=== PATIENT | male | born 1950 | race Caucasian/White ===

== ENCOUNTER 2018-04-08 05:23 | Inpatient (IN) | payer OTHER ==
[2018-04-08] MEDS ORDERED: NS 1,000 ML IV ONE ×3 (05:32→06:16)
--- NOTE | 2018-04-08 05:36 | EDPHY ---
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 States started feeling short of breath around 2 o 'clock in the morning. With increasing coughing spell with productive sputum. The coughing spell persisted throughout the night. It is now 530 in the morning he presents emergency room short of breath, tachycardic and febrile. Upon arrival to the emergency room he is greeted ER room 11 with his in as well as himself. He has noted be tachycardic in the 160s to 170s. Additionally noted to be febrile 38.3. Crackles throughout all lung ordonez except the right lower base. He has a productive cough clear yellow sputum. Additionally complains of right-sided chest discomfort. 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 Coronary disease with stents. Hyperlipidemia. Past Surgical History: Lobectomy right lower lobe carcinoid tumor. Previous pneumothorax. 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 Family History: Noncontributory ROS REVIEW OF SYSTEMS: A comprehensive 10 point review of systems is otherwise negative aside from elements mentioned in the history of present illness. Exam Constitutional mild distress, respiratory, tachycardic, tachypneic, febrile triage nursing summary reviewed, vital signs reviewed, awake/alert. Tachycardic 160s, febrile 38.3, hypoxic 80% on room air. 93% on non-rebreather. Eyes normal conjunctivae and sclera, EOMI, PERRLA. HENT normal inspection, atraumatic, moist mucus membranes, no epistaxis, neck supple/ no meningismus, no raccoon eyes. Respiratory decreased breath sounds bilaterally, crackles bilaterally tachypnea. Cardiovascular rate normal, regular rhythm, no murmur, no edema, distal pulses normal. Gastrointestinal tense ascites on abdomen. Mildly tender. Genitourinary no CVA tenderness. Musculoskeletal no midline vertebral tenderness, full range of motion, no calf swelling, no tenderness of extremities, no meningismus, good pulses, neurovascularly intact. Bilateral lower extremity pitting edema. Skin pink, warm, & dry, no rash, skin atraumatic. Neurologic awake, alert and oriented x 3, AAOx3, moves all 4 extremities equally, motor intact, sensory intact, CN II-XII intact, normal cerebellar, normal vision, normal speech. Psychiatric normal mood/affect. Heme/Lymph/Immune no lymphadenopathy. Differential Diagnosis: Includes but is not limited to in a particular order respiratory distress, hypoxic respiratory failure, pneumothorax, pneumonia, CHF a pulmonary embolism, ACS Medical Decision Making: Plan for this patient IV establishment, blood cultures , lactic acid, chest x-ray, EKG, fluid bolus, rule pneumonia rule out pneumothorax rule out ACS. Rule out PE. Re-evaluation: EKG interpretation by me on record in [employer] system. Impression time of EKG 5:37 a.m., sinus tachycardia rate of [address] elevation[address] Subtle ST depression probably rate related. 0550: Discussed at bedside with if they would want intubation if he becomes worse or shock her CPR. They are agreeable this would like intubation. Lactic acid over 4.0. Indicating septic shock. Patient getting IV fluids 2 L fluid bolus. Additionally will trend lactic acid. Additionally broad-spectrum antibiotics been ordered immediately IV vancomycin IV Zosyn. Patient's blood pressure is not hypotensive. Blood pressures in the 150s. Heart rate in the 160s. Plan will be for aggressive resuscitation with IV fluids. Additionally broad- spectrum antibiotics. Blood cultures, sputum culture, urine culture. ICU admission on BiPAP. If patient gets worse he may need intubation At This time he is doing okay on BiPAP. 0657: Patient still on CT scan. I spoke with Dr. Hall, agrees to admit the patient. Plan will be for admission to ICU. At this time patient: Is stable on BiPAP. He is a full code according to him and his . He does not need intubation at this time is not pending respiratory failure. He is doing well on BiPAP at this time. However as he gets resuscitated more fluid he may require intubation at some point... Patient is getting a CT angiogram of the chest to rule out pulmonary embolism given his high risk for PE and hypoxia in the setting of cancer. Additionally the CT angiogram will show us better detail the right lung. 0715: Patient is back from T. He is stable. Heart rate 130 down from 1 60s, on BiPAP respiratory rate 22. Much improved from the 40s when he came in. Oxygen saturation 96% on BiPAP. CT scan pending radiology read. However large pleural effusion on the right side with compressive atelectasis with pneumonia. Patient completing his 2 L fluid bolus. 3rd L has been ordered. Broad-spectrum antibiotics have been ordered IV vancomycin IV Zosyn. Patient be admitted to the intensive care unit. Consult pulmonary. CT angiogram of the chest: Large right pleural effusion, compressive atelectasis, ascites on exam. Left lung small pleural effusion. No central or large saddle PE. However scan limited due to contrast load. He did get 2 contrast loads. Unable to see segmental or subsegmental branches. But no central large PE. Critical Care: Total Critical Care Time Spent Managing this Patient: 85 Minutes. This time was spent Exclusively with this patient. This Care was exclusive of procedures. The Organ System/life at risk was hypoxic respiratory failure This Patient was in Critical Condition because hypoxic respiratory failure, right large pleural effusion, right compressive atelectasis, large amount ascites. Source: Patient, EMS Constitutional: Initial Vital Signs Temperature (C) 38.3 C 04/08/18 05:20 Heart Rate 164 H 04/08/18 05:20 Respiratory Rate 24 H 04/08/18 05:20 Blood Pressure 154/71 H 04/08/18 05:20 O2 Sat (%) 93 04/08/18 05:20 O2 Delivery Mode Bi-Pap O2 (L/minute) 10 Allergies/Adverse Reactions: No Known Allergies Allergy (Verified 04/08/18 08:00) Home Medications: Medication Instructions Recorded Albuterol [Proventil Inhaler HFA 1 - 2 puffs IH Q4H PRN 04/08/18 (*)] Aspirin [Aspirin 81mg (*)] 81 mg PO HS 04/08/18 Atorvastatin Calcium [Lipitor 20 20 mg PO HS 04/08/18 mg (*)] Felodipine [Plendil 5 MG (*)] 5 mg PO HS 04/08/18 Furosemide [Lasix 20 MG (*)] 20 mg PO DAILY 04/08/18 Metoprolol Succinate Xr [Toprol Xl 50 mg PO HS 04/08/18 50 mg (*)] Omeprazole 20 mg PO DAILY 04/08/18 Sennosides/Docusate Sodium 1 each PO DAILY PRN 04/08/18 [Senna-S Tablet] Spironolactone [Aldactone 25 MG 50 mg PO DAILY 04/08/18 (*)] morphINE SR [Ms Contin/Oramorph 15 15 mg PO BID 04/08/18 mg (*)] oxyCODONE IR [Oxycodone Ir (*)] 5 - 10 mg PO Q4-6PRN PRN 04/08/18 Medical Decision Making - Data Points Laboratory Results: Laboratory Results 04/08/18 05:25 04/08/18 05:25 Medications Given: Hydrocodone Bitart/Acetaminophen ([place] 5/325) 1 - 2 tab PO Q4HRS PRN PRN Reason: Pain, Moderate Able to Take PO Stop: 04/18/18 07:34 Last Admin: 04/09/18 07:29 Dose: 2 tab Aspirin (Aspirin) 81 mg PO HS [facility] Stop: 10/05/18 20:59 Last Admin: 04/08/18 20:44 Dose: 81 mg Atorvastatin Calcium (Lipitor) 20 mg PO HS [facility] Stop: 10/05/18 20:59 Last Admin: 04/08/18 20:44 Dose: 20 mg Enoxaparin Sodium (Lovenox) 40 mg SC DAILY [facility] Stop: 10/05/18 13:44 Last Admin: 04/08/18 15:51 Dose: Not Given Hydromorphone HCl (Dilaudid) 2 mg IVP Q2HRS PRN PRN Reason: Pain, Breakthrough Stop: 04/19/18 02:36 Last Admin: 04/09/18 02:46 Dose: 2 mg Piperacillin/Tazobactam/Dextrose (Zosyn 3.375 Gm (Premix)) 50 mls @ 100 mls/hr IV Q6 KATTY Stop: 05/08/18 14:29 Last Admin: 04/09/18 05:00 Dose: 50 mls Vancomycin HCl 1.25 gm/ Sodium (Chloride) 250 mls @ 166.667 mls/hr IV Q12H [facility] Stop: 05/08/18 17:59 Last Admin: 04/09/18 05:50 Dose: 250 mls Morphine Sulfate (Ms Contin/Oramorph) 15 mg PO BID [facility] Stop: 04/18/18 09:29 Last Admin: 04/08/18 20:44 Dose: 15 mg Morphine Sulfate (Morphine) 2 - 4 mg IVP Q1HR PRN PRN Reason: Pain, Breakthrough Stop: 04/18/18 07:34 Last Admin: 04/09/18 02:15 Dose: 4 mg Pantoprazole Sodium (Protonix) 40 mg PO DAILY KATTY Stop: 10/05/18 13:44 Last Admin: 04/08/18 15:04 Dose: 40 mg Discontinued Medications Acetaminophen (Tylenol) 1,000 mg PO EDNOW ONE Stop: 04/08/18 06:01 Last Admin: 04/08/18 06:00 Dose: 1,000 mg Sodium Chloride (Ns) 1,000 mls @ 0 mls/hr IV EDNOW ONE; Wide Open PRN Reason: Protocol Stop: 04/08/18 05:33 Last Admin: 04/08/18 05:43 Dose: 1,000 mls Vancomycin/Sodium Chloride (Vancomycin 1 Gm (Premix)) 250 mls @ 250 mls/hr IV EDNOW ONE PRN Reason: Protocol Stop: 04/08/18 06:36 Last Admin: 04/08/18 07:11 Dose: 250 mls Piperacillin/Tazobactam/Dextrose (Zosyn (Premix)) 100 mls @ 200 mls/hr IV EDNOW ONE PRN Reason: Protocol Stop: 04/08/18 06:06 Last Admin: 04/08/18 06:09 Dose: 100 mls Sodium Chloride (Ns) 1,000 mls @ 0 mls/hr IV ONCE ONE PRN Reason: Wide Open Stop: 04/08/18 05:39 Last Admin: 04/08/18 05:44 Dose: 1,000 mls Potassium Chloride (Potassium Cl 20 Meq (Premix)) 100 mls @ 50 mls/hr IV EDNOW ONE Stop: 04/08/18 08:09 Last Admin: 04/08/18 09:00 Dose: Not Given Sodium Chloride (Ns) 1,000 mls @ 0 mls/hr IV ONCE ONE PRN Reason: Wide Open Stop: 04/08/18 06:17 Last Admin: 04/08/18 06:15 Dose: 1,000 mls Magnesium Sulfate (Magnesium Sulf 2 Gm (Premix)) 50 mls @ 50 mls/hr IV EDNOW ONE Stop: 04/08/18 07:16 Last Admin: 04/08/18 07:32 Dose: 50 mls Potassium Chloride (Potassium Cl 10 Meq (Premix)) 100 mls @ 100 mls/hr IV Q1H KATTY Stop: 04/08/18 09:29 Last Admin: 04/08/18 09:00 Dose: Not Given Azithromycin 500 mg/ Sodium (Chloride) 255 mls @ 255 mls/hr IV ONCE ONE PRN Reason: Protocol Stop: 04/08/18 11:59 Last Admin: 04/08/18 11:32 Dose: 255 mls Calcium Gluconate 1 gm/ (Dextrose) 60 mls @ 120 mls/hr IV ONCE ONE Stop: 04/08/18 15:59 Last Admin: 04/08/18 15:51 Dose: 60 mls Prothrombin Complex Concent (Human) (Kcentra) 2,500 unit in 100 mls @ 0 mls/hr IV ONCE ONE; Per Protocol PRN Reason: Protocol Stop: 04/08/18 23:31 Last Admin: 04/09/18 00:09 Dose: 100 mls Phytonadione 10 mg/ Sodium (Chloride) 51 mls @ 204 mls/hr IV ONCE ONE Stop: 04/08/18 23:48 Last Admin: 04/09/18 00:09 Dose: 51 mls Miscellaneous Information (Message To [facility]) 0 ea MISC ONCE ONE Stop: 04/08/18 23:31 Last Admin: 04/09/18 07:03 Dose: Not Given Morphine Sulfate (Morphine) 4 mg IVP EDNOW ONE Stop: 04/08/18 05:53 Last Admin: 04/08/18 06:10 Dose: 4 mg Morphine Sulfate (Morphine) 4 mg IVP EDNOW ONE Stop: 04/08/18 06:13 Last Admin: 04/08/18 06:20 Dose: 4 mg Morphine Sulfate (Morphine) 4 mg IVP EDNOW ONE Stop: 04/08/18 07:23 Last Admin: 04/08/18 07:23 Dose: 4 mg Morphine Sulfate (Morphine) 1 - 2 mg IVP Q1HR PRN PRN Reason: Pain, Breakthrough Stop: 04/18/18 07:34 Last Admin: 04/08/18 08:11 Dose: 2 mg Morphine Sulfate (Morphine) 4 mg IVP ONCE ONE Stop: 04/09/18 02:46 Last Admin: 04/09/18 02:24 Dose: 4 mg Potassium Chloride (Klor-Con) 40 meq PO ONCE ONE Stop: 04/08/18 08:16 Last Admin: 04/08/18 08:28 Dose: 40 meq Potassium Chloride (Klor-Con) 40 meq PO ONCE ONE Stop: 04/08/18 11:51 Last Admin: 04/08/18 11:58 Dose: 40 meq Potassium Chloride (Klor-Con) 10 - 40 meq PO ONCE ONE PRN Reason: Protocol Stop: 04/08/18 21:02 Last Admin: 04/08/18 21:17 Dose: 30 meq Departure - Departure Disposition: [facility] Inpatient Acute Clinical Impression: Respiratory distress, Hypoxia, Septic shock, Hypokalemia, Hypomagnesemia Pneumonia Qualifiers: Pneumonia type: due to unspecified organism Laterality: right Lung location: middle lobe of lung Qualified Code(s): J18.1 - Lobar pneumonia, unspecified organism Sepsis Qualifiers: Sepsis type: sepsis due to unspecified organism Qualified Code(s): A41.9 - Sepsis, unspecified organism Condition: Critical
[2018-04-08] MEDS ORDERED: PIPERACILLIN/TAZO 4.5 GM/DEX 100 ML IV ONE (05:37)
[2018-04-08] MEDS ORDERED: VANCOMYCIN HCL/NORMAL SALINE 250 ML IV ONE (05:37)
[2018-04-08 05:41] LABS: PLATELET COUNT 335 10^3/uL (150-400)
[2018-04-08 05:49] LABS: INR 1.45 (0.83-1.16); PROTIME(PATIENT) 17.8 SEC (12.0-15.0)
[2018-04-08] MEDS ORDERED: ACETAMINOPHEN 500 MG TAB ONE (05:58)
[2018-04-08] MEDS ORDERED: ACETAMINOPHEN 500 MG TAB PO ONE (06:00)
[2018-04-08] MEDS ORDERED: ALBUTEROL 3 ML DEYVIAL ONE (06:01)
[2018-04-08] MEDS ORDERED: IOPAMIDOL (ISOVUE 370) 100 ML BTL IV ONE ×2 (06:06→06:26)
[2018-04-08] MEDS ORDERED: POTASSIUM Cl (KCl) 100 ML IV ONE (06:10)
[2018-04-08] MEDS ORDERED: MAGNESIUM SULF 2 GM/WATER 50 ML IV ONE (06:17)
--- NOTE | 2018-04-08 07:05 | CPEKG ---
Test Reason : OPEN Blood Pressure : / mmHG Vent. Rate : 161 BPM Atrial Rate : 161 BPM P-R Int : 096 ms QRS Dur : 094 ms QT Int : 358 ms P-R-T Axes : 049 025 028 degrees QTc Int : 586 ms Supraventricular tachycardia Low voltage, precordial leads ST depression, probably rate related Confirmed by Vic Forrest ([id number]) on 04/08/2018 7:05:12 AM Referred By: Confirmed By:Vic Forrest
[2018-04-08] MEDS ORDERED: POTASSIUM Cl (KCl) 100 ML IV SCH (07:30)
[2018-04-08] MEDS ORDERED: POTASSIUM Cl (KCl) 10 MEQ/100 ML BAG IV ONE (07:30)
[2018-04-08] MEDS ORDERED: ACETAMINOPHEN 325 MG TAB PO PRN (07:35)
[2018-04-08] MEDS ORDERED: ONDANSETRON 4 MG/2 ML VIAL IVP PRN (07:35)
[2018-04-08] MEDS ORDERED: NS 1,000 ML IV SCH (07:45)
[2018-04-08] MEDS ORDERED: POTASSIUM CL 20 MEQ TAB PO ONE ×2 (08:15→11:50)
[2018-04-08] MEDS: morphINE SR 15 MG TAB PO SCH ×2 (09:41→20:44)
[2018-04-08 09:59] LABS: INR 1.8 (0.83-1.16)
[2018-04-08 10:11] LABS: PLATELET COUNT 162 10^3/uL (150-400)
[2018-04-08] MEDS ORDERED: PROTOCOL K PHOSPHATE 1 DOSE IV PRN (10:36)
[2018-04-08] MEDS ORDERED: PROTOCOL CALCIUM 1 DOSE IV PRN (10:36)
[2018-04-08] MEDS ORDERED: PROTOCOL MAGNESIUM 1 DOSE IV PRN (10:36)
[2018-04-08] MEDS ORDERED: AZITHROMYCIN IV 500 MG in NS 250 ML IV ONE (11:00)
[2018-04-08] MEDS ORDERED: PROTOCOL POTASSIUM 1 DOSE MISC PRN (11:49)
[2018-04-08] MEDS ORDERED: BUPIVACAINE 0.25% 30 ML SDV ONE (12:01)
[2018-04-08] MEDS ORDERED: LIDOCAINE 1% 300 MG/30 ML SDV ONE ×2 (12:01→21:10)
--- NOTE | 2018-04-08 13:22 | PDGENHP ---
History and Physical - Chief Complaint Cough, SOB - History of Present Illness Mr. Jin Luke is a 67-year-old male with a PMHx of carcinoid tumor, status post lobectomy right lower lobe for the carcinoid tumor, carcinoid in liver with ascites, CAD s/p LAD stent who presents to [facility] from home by EMS due to respiratory distress on a non-rebreather. Patient reports that he had acute onset of shortness of breath around 2 AM with increasing productive cough spell with productive sputum of green-brown. The coughing persisted throughout the night so he presented to ED. He also complains of right-sided chest discomfort. History Information - Allergies/Home Medication List Allergies/Adverse Reactions: No Known Allergies Allergy (Verified 04/08/18 08:00) Home Medications: Albuterol [Proventil Inhaler HFA (*)] 1 - 2 puffs IH Q4H PRN 04/08/18 [Last Taken Unknown] Aspirin [Aspirin 81mg (*)] 81 mg PO HS 04/08/18 [Last Taken 04/07/18] Atorvastatin Calcium [Lipitor 20 mg (*)] 20 mg PO HS 04/08/18 [Last Taken ] Felodipine [Plendil 5 MG (*)] 5 mg PO HS 04/08/18 [Last Taken 04/07/18] Furosemide [Lasix 20 MG (*)] 20 mg PO DAILY 04/08/18 [Last Taken 04/07/18] Metoprolol Succinate Xr [Toprol Xl 50 mg (*)] 50 mg PO HS 04/08/18 [Last Taken 04/07/18] Omeprazole 20 mg PO DAILY 04/08/18 [Last Taken 04/07/18] Sennosides/Docusate Sodium [Senna-S Tablet] 1 each PO DAILY PRN 04/08/18 [Last Taken Unknown] Spironolactone [Aldactone 25 MG (*)] 50 mg PO DAILY 04/08/18 [Last Taken ] morphINE SR [Ms Contin/Oramorph 15 mg (*)] 15 mg PO BID 04/08/18 [Last Taken 21:00] oxyCODONE IR [Oxycodone Ir (*)] 5 - 10 mg PO Q4-6PRN PRN 04/08/18 [Last Taken ] I have personally reviewed and updated: family history, medical history, social history, surgical history - Past Medical History coronary artery disease, cancer - Surgical History Additional surgical history: Right lower lobectomy - Family History Additional family history: Parents diseased - Social History Smoking Status: Never smoked Alcohol Use: None Drug Use: None Review of Systems Review of Systems: ROS: 10pt was reviewed & negative except for what was stated in HPI & below Physical Exam Physical Exam: Temp Pulse Resp BP Pulse Ox 36.4 C 99 16 103/62 95 04/08/18 08:00 04/08/18 11:00 04/08/18 11:00 04/08/18 11:00 04/08/18 11:00 FIO2 (%) 40 Constitutional: no apparent distress Eyes: PERRL, anicteric sclera Ears, Nose, Mouth, Throat: moist mucous membranes, hearing normal Cardiovascular: tachycardia Respiratory: inspiratory crackles Gastrointestinal: soft, non-tender abdomen, ascites Genitourinary: no bladder fullness Skin: warm Musculoskeletal: full muscle strength Neurologic: AAOx3 Psychiatric: interacting appropriately Lymph, Heme, Immunologic: No ecchymoses, No petechiae Lab Data & Imaging Review 04/08/18 09:16 04/08/18 11:17 WBC 3.80 10^3/uL (3.80-9.50) 04/08/18 09:16 RBC 2.91 10^6/uL (4.40-6.38) L 04/08/18 09:16 Hgb 10.1 g/dL (13.7-17.5) L 04/08/18 09:16 Hct 29.5 % (40.0-51.0) L 04/08/18 09:16 MCV 101.4 fL (81.5-99.8) H 04/08/18 09:16 MCH 34.7 pg (27.9-34.1) H 04/08/18 09:16 MCHC 34.2 g/dL (32.4-36.7) 04/08/18 09:16 RDW 14.9 % (11.5-15.2) 04/08/18 09:16 Plt Count 162 10^3/uL (150-400) 04/08/18 09:16 MPV 10.8 fL (8.7-11.7) 04/08/18 09:16 Neut % (Auto) Not Reported 04/08/18 09:16 Lymph % (Auto) Not Reported 04/08/18 09:16 [place] % (Auto) Not Reported 04/08/18 09:16 Eos % (Auto) Not Reported 04/08/18 09:16 Baso % (Auto) Not Reported 04/08/18 09:16 Nucleat RBC Rel Count Not Reported 04/08/18 09:16 Absolute Neuts (auto) Not Reported 04/08/18 09:16 Absolute Lymphs (auto) Not Reported 04/08/18 09:16 Absolute Monos (auto) Not Reported 04/08/18 09:16 Absolute Eos (auto) Not Reported 04/08/18 09:16 Absolute Basos (auto) Not Reported 04/08/18 09:16 Absolute Nucleated RBC Not Reported 04/08/18 09:16 Immature Gran % Not Reported 04/08/18 09:16 Seg Neutrophils % 67.7 % 04/08/18 09:16 Band Neutrophils % 16.2 % 04/08/18 09:16 Lymphocytes % 6.0 % 04/08/18 09:16 Monocytes % 9.1 % 04/08/18 09:16 Eosinophils % 0.0 % 04/08/18 09:16 Basophils % 0.0 % 04/08/18 09:16 Metamyelocytes % 0.0 % 04/08/18 09:16 Myelocytes % 0.0 % 04/08/18 09:16 Promyelocytes % 0.0 % 04/08/18 09:16 Blast Cells % 1.0 % 04/08/18 09:16 Immature Gran # Not Reported 04/08/18 09:16 Absolute Seg Neuts 2.57 10^/uL (1.70-6.50) 04/08/18 09:16 Absolute Band Neuts 0.62 10^3/uL (0.00-0.70) 04/08/18 09:16 Absolute Lymphocytes 0.23 10^3/uL (1.00-3.00) L 04/08/18 09:16 Absolute Monocytes 0.35 10^3/uL (0.30-0.80) 04/08/18 09:16 Absolute Eosinophils 0.00 10^3/uL (0.03-0.40) L 04/08/18 09:16 Absolute Basophils 0.00 10^3/uL (0.02-0.10) L 04/08/18 09:16 Absolute Metamyelocyte 0.00 10^3/mL (0.00-0.00) 04/08/18 09:16 Absolute Myelocytes 0.00 10^3/mL (0.00-0.00) 04/08/18 09:16 Absolute Promyelocytes 0.00 10^3/uL (0.00-0.00) 04/08/18 09:16 Absolute Plasma Cells 0.00 10^3/uL (0.00-0.00) 04/08/18 09:16 Nucleated RBCs 1.0 /100 WBC (0-0) H 04/08/18 09:16 RBC/WBC/PLT Morphology NORMAL (NORMAL) 04/08/18 09:16 Absolute Blast Cells 0.04 10^3/uL (0.00-0.00) H 04/08/18 09:16 Plasma Cells % 0.0 % 04/08/18 09:16 Platelet Estimate ADEQUATE (ADEQ) 04/08/18 09:16 ESR 64 MM/HR (0-20) H 04/08/18 05:25 PT 21.0 SEC (12.0-15.0) H 04/08/18 09:21 INR 1.80 (0.83-1.16) H 04/08/18 09:21 APTT 42.8 SEC (23.0-38.0) H 04/08/18 09:21 Puncture Site Not Reported 04/08/18 09:00 Patient Temperature 38.3 DEGREES 04/08/18 05:57 pCO2 REJ 04/08/18 09:00 pO2 REJ 04/08/18 09:00 Total CO2 REJ 04/08/18 09:00 ABG pH REJ 04/08/18 09:00 ABG PO2/FiO2 Ratio 72 RATIO 04/08/18 05:57 ABG HCO3 REJ 04/08/18 09:00 ABG O2 Saturation REJ 04/08/18 09:00 ABG Base Excess REJ 04/08/18 09:00 ABG Lactic Acid Cancelled 04/08/18 09:00 VBG Lactic Acid 3.9 mmol/L (0.7-2.1) H 04/08/18 09:15 Mixed VBG O2 Saturation 99 % (65-75) H 04/08/18 09:15 Total O2 Concentration 15.0 LITERS 04/08/18 05:57 O2 Concentration % 97 % (0-100) 04/08/18 05:57 Sodium 137 mEq/L (135-145) 04/08/18 09:21 Potassium 2.8 mEq/L (3.3-5.0) L 04/08/18 11:17 Chloride 105 mEq/L (97-110) 04/08/18 09:21 Carbon Dioxide 21 mEq/l (22-31) L 04/08/18 09:21 Anion Gap 11 mEq/L (8-16) 04/08/18 09:21 BUN 12 mg/dL (7-23) 04/08/18 09:21 Creatinine 0.7 mg/dL (0.7-1.3) 04/08/18 09:21 Estimated GFR > 60 04/08/18 09:21 Glucose 89 mg/dL (70-100) 04/08/18 09:21 POC Glucose 83 mg/dL (70-100) 04/08/18 08:45 Calcium 6.8 mg/dL (8.5-10.4) L 04/08/18 09:21 Ionized Calcium 1.05 MMOL/L (1.12-1.30) L 04/08/18 11:17 Phosphorus 3.6 mg/dL (2.5-4.5) 04/08/18 11:17 Magnesium 2.2 mg/dL (1.6-2.3) 04/08/18 11:17 Total Bilirubin 1.8 mg/dL (0.1-1.4) H 04/08/18 09:21 Conjugated Bilirubin 1.0 mg/dL (0.0-0.5) H 04/08/18 09:21 Unconjugated Bilirubin 0.8 mg/dL (0.0-1.1) 04/08/18 09:21 AST 39 IU/L (17-59) 04/08/18 09:21 ALT 29 IU/L (21-72) 04/08/18 09:21 Alkaline Phosphatase 434 IU/L (38-126) H 04/08/18 09:21 Lactate Dehydrogenase 406 IU/L (313-618) 04/08/18 11:17 Troponin I 0.017 ng/mL (0.000-0.034) 04/08/18 05:25 C-Reactive Protein 79.6 mg/L (<10.0) H 04/08/18 05:25 NT-Pro-B Natriuret Pep 460 pg/mL (0-125) H 04/08/18 05:25 Total Protein 5.4 g/dL (6.3-8.2) L 04/08/18 09:21 Albumin 1.9 g/dL (3.5-5.0) L 04/08/18 09:21 Lipase 170 IU/L (23-300) 04/08/18 05:25 Procalcitonin 0.90 ng/mL (0.02-0.10) H 04/08/18 05:25 Visualized and Interpreted Chest x-ray results: Yes Chest X-Ray results: infiltrate, effusion Visualized and Interpreted EKG results: Yes EKG Interpretation: Positive for: other (Tachycardia) Assessment & Plan Assessment: 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 of carcinoid tumor who presents with acute hypoxic respiratory failure, sepsis Acute Hypoxic Respiratory Failure - Acute SOB overnight with productive cough - CT chest shows moderate to large partially loculated R pleural effusion with complete collapse of RML and partial collapse of RUL - Was placed on BiPAP in ED, ABG from admission compensated, repeat pending - Will wean 02 as tolerated - Thoracentesis ordered for therapeutic and diagnostic evaluation of R sided pleural effusion - S/p IV Vanc/Zosyn in ED, will continue for now pending culture data Sepsis - Tachycardic, febrile, and tachypnic on admission, with R sided loculated pleural effusion, possible superimposed infxn of necrotic metastases - S/p Vanc/Zosyn in ED, will continue for now pending culture data - Will give dose of Azithromycin for atypical coverage, continue if indicated, urine legionella pending - S/p 30 cc/kg IVF resuscitation in ED, continue IVF PRN - Tylenol prn for fever Hypokalemia - K 2.9 on admission - Potassium replacement protocol ordered - Continue to monitor K CAD - S/p LAD stent - Trop elevated on admission, EKG without acute ST T wave changes - If onset of chest pain, repeat Troponin/EKG - Continue home ASA, statin Malignant Ascites - Holding home spironolactone and lasix in setting of sepsis - Restart as BP tolerates and resolution of sepsis HTN - Holding home Felodipine in setting of sepsis Code: Full Diet: NPO while on BiPAP PPx: PPI, Lovenox Dispo: Pending clinical course Critical care time spent on patient 45 minutes
[2018-04-08] MEDS ORDERED: ALBUTEROL 60 PUFFS/8 GM MDI IH PRN (13:32)
[2018-04-08] MEDS ORDERED: SENNOSIDES/DOCUSATE SODIUM TAB PO PRN (13:32)
[2018-04-08] MEDS ORDERED: oxyCODONE IR 5 MG TAB PO PRN (13:32)
--- NOTE | 2018-04-08 14:01 | PDMN ---
Medical Necessity Medical necessity: Pt meets IP criteria per MD & MCG M-160; est los >2 mn for eval/tx of sepsis w/hypoxic respiratory failure, pleural effusion, complete collapse of RML & partial collapse of RUL & hypokalemia; requiring further ICU monitoring, BiPAP. thoracentesis, IV abx & IVFs; hx lung cancer s/p lobectomy w/ malignant ascites, HTN, CAD; per H&P & order 04/08/18
[2018-04-08] MEDS: PIPERACILLIN/TAZO 3.375 GM/DEX 50 ML IV SCH ×3 (14:35→23:27)
[2018-04-08] MEDS: PANTOPRAZOLE SODIUM 40 MG TAB PO SCH (15:04)
[2018-04-08] MEDS ORDERED: CALCIUM GLUCONATE 50 ML IV ONE (15:24)
[2018-04-08] MEDS ORDERED: CALCIUM GLUCONATE 1 GM in D5W 50 ML IV ONE (15:30)
[2018-04-08] MEDS: ENOXAPARIN 40 MG/0.4 ML SYR SC SCH (15:51)
--- NOTE | 2018-04-08 15:54 | GCON ---
[f rep st] CONSULTATION PULMONARY CRITICAL CARE CONSULTATION DATE OF CONSULTATION: 04/08/2018 REASON FOR CONSULTATION: Pneumonia, pleurisy, and sepsis in a patient with underlying metastatic car cinoid. 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 He awoke alona y this morning with pleuritic type chest pain. This increased over a number of hours and was associa tamara with cough and purulent sputum. He called EMS early this morning and was brought into the emerge ncy room. He was febrile, tachypneic, and tachycardic on arrival. Chest x-ray showed a right-sided pneumonia. CT scan of the chest documented a right lower zone pulmonary infiltrate, and a moderate p leural effusion and atelectasis of the right middle lobe. There was no evidence of central pulmonary embolic disease, however, the contrast bolus was poor regarding complete evaluation for PE. Some pa rtial atelectasis was noted in the right upper lobe. The left lung was relatively unremarkable. Asc ites was noted. Liver metastases were noted with a necrotic mass in the dome of the liver containing some small gas bubbles. The biliary duct was not dilated. A stent was in place. White blood cell count was 6300, hematocrit 36. Lactate was 4.8. Initial blood gas on 15 L of oxygen showed a pH of 7.45, pCO2 of 32, and pO2 of 70. He was placed on BiPAP. He was covered with vancomycin and IV Zosy n, given fluid resuscitation per the sepsis protocol. He was admitted to the intensive care unit in stable condition. Regarding the patient's carcinoid, he was diagnosed approximately 13 years ago. Right lower lobe res ection was done at that time. He has had known metastatic disease and is followed at [facility]. Most significant metastatic issues have involved the liver. He has had biliary obstruction and has requi red stents. His last procedure was approximately 3 weeks ago. He in recent months has developed asc ites. He has been tapped once for 4 L and he feels this has returned, but has equilibrated and is st able at this time. Further paracenteses per the patient are not being recommended. He is on Lasix a nd spironolactone for the ascites. He last saw Oncology a week ago. According to the patient, he is felt to be stable at this time. PAST MEDICAL HISTORY: Remarkable for issues as mentioned above. There is also a history of systemic hypertension, gastroesophageal reflux, hyperlipidemia, and chronic pain related to his metastatic di sease. HOME MEDICATIONS: Felodipine, metoprolol, furosemide, spironolactone, omeprazole, MS Contin and OxyI R, baby aspirin and Lipitor. He is also on an albuterol inhaler p.r.n. DRUG ALLERGIES: None known. REVIEW OF SYSTEMS: A 10-point review of systems is negative except as noted above. SOCIAL HISTORY: The patient is . He lives in the [facility]. He is a retired [employer] labor relations supervisor. Healthcare and his physicians are all down at [facility]. Tobacco and significant alcohol are negative. FAMILY HISTORY: Noncontributory. PHYSICAL EXAMINATION: GENERAL: Pleasant gentleman, who has BiPAP intermittently in place at 40%. S aturations are 95%. VITAL SIGNS: Blood pressure is approximately 110/60, heart rate 100 with sinus rhythm on the monitor. He is afebrile with a maximum temperature of 38.3. HEENT: Remarkable for th e BiPAP mask. Mucous membranes are moist. There is no jugular venous distention, no lymphadenopathy or thyromegaly. PULMONARY: The chest reveals diminished breath sounds at the right base, possibly consistent with his previous lobectomy and with known pleural effusion. There are a few rales and br onchial sounds above and at the left base. No rub can be appreciated even with deep respirations. H e does complain of pleuritic type pain. HEART: Mildly tachycardic. There is a soft systolic murmur , no obvious gallop. ABDOMEN: The abdomen is distended. Ascites is present. There is no significa nt tenderness, however, deep palpation was not done. Bowel sounds are present but diminished. EXTRE MITIES: Unremarkable for edema, cords, or tenderness. NEUROLOGIC: Examination is intact. DATABASE/RADIOLOGIC STUDIES: As noted above. LABORATORY: Current laboratory shows a white blood cell count of 3800, hematocrit of 32.9, and a marin telet count of 162. There are 67 segs and 16 bands. ESR on admission was 64. INR currently is 1.8, 1.45 on admission. PTT is 42. Arterial blood gas on admission is as above. Followup lactate was 3 .9, and VO2 99. Sodium is 137, potassium 2.8, CO2 21, anion gap 11, BUN 12, with a creatinine of 0.7 . Glucose is normal. Calcium and ionized calcium are low, the latter at 1.05. Phosphorus is 3.6, m agnesium 2.2. Bilirubin is 1.08. AST and ALT are normal. Albumin is 1.9. Procalcitonin on admissi on was 0.9, proBNP 460. CRP was approximately 80. Troponin was negative. LDH was 447. The patient was sent for thoracentesis. Pleural fluid was obtained. This was frankly purulent. Gra m stain is pending. Cell count was remarkable for 36,000 white blood cells and 75,000 red blood cell s per mm. LDH was 9931 with pleural fluid glucose less than 20. This is consistent with empyema. B leeding was encountered at the end of the procedure. Cytologies are pending. Pneumococcal and Legionella urinary antigens are pending. A respiratory panel is also pending. ASSESSMENT: 1. Pneumonia, right lung. This is associated with empyema. Aspiration is possible according to the patient, as he does occasionally have swallowing problems. There is no history of vomiting or joan aspiration. Antibiotics include vancomycin and Zosyn. Azithromycin will be added for atypical cove rage until cultures have returned. Infectious Disease consultation will be requested. Surgical cons ultation will be requested as well for placement of a right-sided chest tube for his empyema. 2. Empyema: Please see the comments above. 3. Metastatic carcinoid. Please see the H and P for details. This is associated with known metasta ses, including liver metastases and a degree of hepatic failure with ascites. He is status post bili addy stenting as well for biliary obstruction. 4. Sepsis. Lactate was elevated on admission and he was tachycardic and hypotensive. This resolved with fluid resuscitation. Pressors have not been required. He is on the sepsis protocol. 5. Metabolic: Hypokalemia, hypocalcemia and hypomagnesemia all present on admission. Electrolyte r eplacement per protocols have been ordered. 6. Prophylaxis: Pantoprazole will be continued. Lovenox for prophylactic anticoagulation will be h eld for now pending possible surgical procedures. PLAN AND RECOMMENDATIONS: The patient will be kept in the intensive care unit. BiPAP is being used for patient comfort to reduce air hunger. Saturations are acceptable on nasal cannula supplemental o xygen. Antibiotics will be continued, along with intravenous fluids. Infectious Disease consultatio n and surgical consultation will be obtained. I have discussed the possibility of transfer to the [facility] with the patient. He may feel more comfortable there, as all his care, which has been relat ively complicated, has been at [facility]. Laboratory and chest x-ray will be followed. H and H will be followed. Further plans and recommendations will be made based on his progress over the next 6-12 hours. Over 1 hour of critical care time was spent directly with the patient. Multiple visits. Discussed a ll issues with the patient and his . /[id number]/MODL
[2018-04-08] MEDS: VANCOMYCIN 1.25 GM in NS 250 ML IV SCH (18:26)
[2018-04-08 19:06] LABS: INR 1.84 (0.83-1.16); PROTIME(PATIENT) 21.3 SEC (12.0-15.0)
--- NOTE | 2018-04-08 20:25 | GCON ---
[f rep st] CONSULTATION INFECTIOUS DISEASES CONSULTATION DATE OF CONSULTATION: 04/08/2018 REASON FOR CONSULTATION: Right-sided empyema. HISTORY OF PRESENT ILLNESS: The patient is a 67-year-old male with a past medical history of metasta tic carcinoid who I am asked to see in consultation for right-sided empyema. The patient has a long history of carcinoid with treatments including right lower lobe resection, sclerotherapy of hepatic l esion, and recently multiple biliary stents associated with biliary obstruction who developed abrupt onset of cough, purulent sputum production which was green in nature, and significant dyspnea in the middle of the night last night. He notes when he went to bed these symptoms were not present. He di d not have preceding fever, chills or night sweats. Upon presentation, he was noted to have a temper ature of 38.3. He does note that he has had some difficulty swallowing recently, but no joan episod es of choking or aspiration. No recent dental problems or dental work. No recent travel history. 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 Most recent stent change occurred approximately 2-3 weeks ago. He did receive antibiotic therapy w ith Augmentin around the time of last stent change. The patient underwent CT scan of the chest upon initial evaluation, which showed a [id number] partially loculated right pleural effusion with collapse of right middle lobe and partial collapse of right upper lobe with evidence of gas-containin g lesions in the liver, felt to be most compatible with necrotic metastases; images upon review do ap pear to show a possible communication between necrotic liver lesions and pleural space. The patient was started empirically on vancomycin, Zosyn, and azithromycin. He subsequently underwent thoracente sis, which yielded serosanguineous and purulent brownish material with thick debris with a total of 6 60 mL being removed. At the close of the procedure, continuous aspiration of blood was noted. Gel-F oam slurry was subsequently injected. Pleural fluid analysis showed a pH of 6.8, white blood cell co unt of 36,423 with 93% neutrophils, 75,187 red blood cells, protein 3.4, LDH 9931, and glucose less t cordero 20; gram stain of the pleural fluid shows 2+ white blood cells with 2+ gram-positive cocci. Furt her morphologic characterization of the gram-positive cocci was not possible in the laboratory. Spec imens were submitted for cytologic evaluation. Given the above findings, I am now asked to assist in his ongoing management. PAST MEDICAL HISTORY: Metastatic carcinoid as outlined above, coronary artery disease, hypertension, hyperlipidemia, gastroesophageal reflux. PAST SURGICAL HISTORY: Right lower lobectomy, multiple biliary stents. CURRENT MEDICATIONS: Vancomycin 1.25 g IV q.12 hours, Zosyn 3.375 g IV q.6 hours, albuterol inhaler as needed, Lipitor 20 mg p.o. q.h.s., Lovenox 40 mg subcu daily, MS Contin 15 mg p.o. b.i.d., Protoni x 40 mg p.o. daily. ALLERGIES: No known drug allergies. SOCIAL HISTORY: Patient does not smoke and drinks alcohol occasionally. 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 Pet dog at home. FAMILY HISTORY: Coronary artery disease. REVIEW OF SYSTEMS: Outside that noted in the HPI, remainder of 10-system review is unremarkable. Vlad العلي's last chemotherapy was approximately 3 months ago. PHYSICAL EXAMINATION: VITAL SIGNS: Temperature maximum 38.3, temperature current 36.5, heart rate 1 05, respiratory rate 19, blood pressure 125/69, oxygen saturation 94% on 25 L. General: Patient is well nourished, well developed, in no acute distress. He appears nontoxic. HEENT: No scleral icter us, conjunctival injection, or conjunctival petechiae. Oropharynx shows moist mucous membranes with no thrush. Dentition is in fair repair. There is no nasal discharge or tenderness over the sinuses. NECK: Supple without palpable lymphadenopathy or thyromegaly. CHEST: There are decreased breath sounds at the right base. Respiratory effort is mildly increased. CARDIOVASCULAR: Tachycardic, wit hout murmurs, gallops, or rubs. ABDOMEN: Soft, nontender, nondistended. Liver is palpable 3 cm bel ow costal margin. No palpable splenomegaly. Bowel sounds are present. MUSCULOSKELETAL: 1+ pitting edema of the ankles bilaterally. There is no cyanosis or clubbing. SKIN: No rashes noted. No sti gmata of endocarditis. Skin is warm and dry to touch. NEUROLOGIC: Patient is alert, interacts appr opriately with examiner. Cranial nerves 2-12 are grossly intact. Sensation is grossly intact. Musc le tone and bulk are normal. LYMPHATICS: No cervical or supraclavicular nodes palpable. LABORATORY DATA: White blood cell count 3.8, hematocrit 29.5, platelets 162, neutrophils 68%. Serum creatinine 0.7, bilirubin 1.8, AST 39, ALT 29, alkaline phosphatase 434, albumin 1.9. Procalcitonin 0.9, C-reactive protein 79.6. Pleural fluid studies as outlined in the HPI. Urine Legionella and u rine Streptococcus pneumoniae antigens are pending; blood cultures x2 are pending. Sputum specimen o verly contaminated. Pleural fluid Gram stain with GPCs. CT scan as outlined above, which was review ed and interpreted by me. IMPRESSION: Right-sided empyema: Right-sided empyema which possibly is related to communication wit h necrotic metastases and potentially in communication with necrotic hepatic metastases. Most likely GPC will be related to either microaerophilic streptococci, although cannot rule out other pathogen such as Streptococcus pneumoniae or Staphylococcus aureus. Given radiographic findings, potential fo r mixed infection also exists. Currently, surgical consultation has been requested with plans for ch est tube drainage. Ultimately, suspect this will require VATS for more definitive therapy, although this may be complicated by question of anatomic communication between necrotic metastases and pleural space. RECOMMENDATIONS: 1. Agree with empiric vancomycin and Zosyn. 2. Follow up pleural cultures as available. 3. Modification of antibiotics as culture data becomes available with plans to limit vancomycin dura tion if no Staph aureus or resistant gram-positive liana isolated. 4. Await surgical consultation for further management of pleural space drainage. Thank you for this consultation. We will continue to follow the patient with you. /[id number]/MODL
[2018-04-08] MEDS ORDERED: ATORVASTATIN CALCIUM 20 MG TAB PO SCH (21:00)
[2018-04-08] MEDS ORDERED: ASPIRIN 81 MG CHEWABLE TAB PO SCH (21:00)
[2018-04-08] MEDS ORDERED: POTASSIUM CL 10 MEQ TAB PO ONE (21:01)
[2018-04-08 22:44] LABS: INR 2.12 (0.83-1.16); PROTIME(PATIENT) 23.8 SEC (12.0-15.0)
[2018-04-08] MEDS ORDERED: [UNRECOGNIZED DRUG - REMARK] MISC ONE (23:30)
[2018-04-08] MEDS ORDERED: HUMAN PROTHROMBIN COMPLX(PCC) 2,500 UNIT/100 ML VIAL IV ONE (23:30)
[2018-04-08] MEDS ORDERED: PHYTONADIONE 10 MG in NS 50 ML IV ONE (23:34)
--- NOTE | 2018-04-08 23:55 | GCON ---
[f rep st] CONSULTATION REFERRING PHYSICIAN: Gal Guzman MD I was asked to see the patient by Dr. Gal Guzman in regard to right empyema. This unfortunate 67-year-old male has been dealing with metastatic carcinoid tumor for quite a while. He underwent a right lower lobe resection in the past for this and then recurred diffusely in the a bdomen. His liver is largely replaced by metastatic carcinoid at the present time. [facility]. He now presents with right chest pain. A CT scan shows fluid in the right chest and this was tapped earlier for 600 mL by the interventional radiologist which has gram-p ositive cocci and Dr. Guzman has requested a chest tube placed for empyema. On this admission, patient's labs are remarkable for an INR of 1.8. I am loath to put a full-size ch est tube in a patient with this degree of anticoagulation, so he has, over the course of last 5 or 6 hours, received 3 units of FFP and surprisingly his INR is increasing and is currently 2.12. The pat ient is in no tremendous distress and I think the risk of placing a full-sized tube through his inter costal muscles with him fully anticoagulated is greater than delaying until we can correct this antic oagulation. I am currently planning on giving the patient prothrombin complex concentrate and if this corrects, w e will place chest tube tonight. Otherwise, we will defer until further efforts in the morning. PHYSICAL EXAM: Dullness to percussion along the posterior lateral right chest. Decreased breath roopa nds right base. Left lung fully aerating. The patient is currently requiring 30 L of flow through 5 0% humidified circuit to maintain oxygen sats and clearly would have moderate risk with general anest hesia to have a chest tube placed or thoracoscopy under operating room conditions. CT is reviewed showing fluid which I think is assessable in the mid axillary line at approximately th e 3rd to 4th interspace. ASSESSMENT: Empyema fluid with gram-positive cocci seen. The patient is hemodynamically stable. No t in septic shock and while I would like to place a chest tube, I would like to see is coags with an INR under 1.5 prior to placement of full size chest tube. I discussed the coagulopathy with Dr. Dangelo velazco again this evening, who recommended he receive some supplemental vitamin K, which I have ordered as well. /[id number]/MODL
[2018-04-09 01:41] LABS: INR 1.39 (0.83-1.16); PROTIME(PATIENT) 17.2 SEC (12.0-15.0)
[2018-04-09] MEDS ORDERED: HYDROmorphONE/DILAUDID 2 MG/ML INJ ONE (02:25)
--- NOTE | 2018-04-09 02:35 | POSTOPPROG ---
Post Op Note Date of Operation: 04/09/18 Surgeon: Carlo Patel Anesthesia: Local (Specify) Pre-op Diagnosis: right emyema Post-op Diagnosis: same Indication: right empyema Procedure: same Findings: same Inf/Abcess present in the surg proc area at time of surgery?: Yes Depth: Organ Space Drains: Other (30 chest tube)
[2018-04-09] MEDS ORDERED: HYDROmorphONE/DILAUDID 2 MG/ML INJ IVP PRN (02:38)
[2018-04-09] MEDS ORDERED: HYDROmorphONE/DILAUDID 2 MG/ML INJ IVP ONE (02:45)
--- NOTE | 2018-04-09 02:56 | GOP ---
[f rep st] OPERATIVE REPORT DATE OF OPERATION: SURGEON: Carlo Patel MD PREOPERATIVE DIAGNOSIS: Right empyema. POSTOPERATIVE DIAGNOSIS: Right empyema. PROCEDURE PERFORMED: Right chest tube placement. FINDINGS: INDICATIONS: A 67-year-old male with metastatic carcinoid tumor, currently with gram-positive cocci and chest tube aspirate earlier in the day. An effort was made in the afternoon to give FFP and even tually prothrombin complex concentrate to get a reasonable INR to place a chest tube. DESCRIPTION OF PROCEDURE: The patient is positioned slightly right side up. The right axilla scrubb ed with ChloraPrep, draped in the usual sterile fashion. Lidocaine was used to create a field block around the 3rd or 4th interspace. Incision made deep into the musculature and then a hemostat used t o enter the chest cavity. A #30 chest tube was placed, probably 500 to a 1000 cc of bloody fluid was lost into the bed and then Pleur-Evac hooked up, removing several 100 additional cc. The chest tube was sutured to the skin. Bulky tape dressing used to secure it in place. The patient had a moderat e amount of pain, despite using close to 400 mg of lidocaine. A chest x-ray was ordered. /[id number]/MODL
[2018-04-09] MEDS: PIPERACILLIN/TAZO 3.375 GM/DEX 50 ML IV SCH ×3 (05:00→17:59)
[2018-04-09 05:02] LABS: PLATELET COUNT 115 10^3/uL (150-400)
[2018-04-09] MEDS: VANCOMYCIN 1.25 GM in NS 250 ML IV SCH ×2 (05:50→17:59)
[2018-04-09] MEDS: HYDROCODONE/APAP 5/325 TAB PO PRN ×3 (07:29→13:30)
[2018-04-09] MEDS ORDERED: BISACODYL 10 MG SUPP PR PRN (08:39)
[2018-04-09] MEDS ORDERED: MAGNESIUM HYDROXIDE 30 ML UDCUP PO PRN (08:39)
[2018-04-09] MEDS ORDERED: LACTULOSE 20 GM/30 ML UDCUP PO PRN (08:39)
[2018-04-09] MEDS ORDERED: POLYETHYLENE GLYCOL 3350 17 GM PKT PO PRN (08:39)
[2018-04-09] MEDS ORDERED: POTASSIUM CL 10 MEQ TAB PO ONE (08:48)
[2018-04-09] MEDS ORDERED: SENNOSIDES/DOCUSATE SODIUM TAB PO SCH (09:00)
[2018-04-09] MEDS: morphINE SR 15 MG TAB PO SCH (09:34)
[2018-04-09] MEDS: PANTOPRAZOLE SODIUM 40 MG TAB PO SCH (09:34)
[2018-04-09] MEDS: ENOXAPARIN 40 MG/0.4 ML SYR SC SCH (09:35)
[2018-04-09] MEDS ORDERED: BIOTENE DRY MOUTH ORAL RINSE 237 ML BTL MM PRN (10:40)
--- NOTE | 2018-04-09 10:45 | PCMIDPN ---
Assessment/Plan: # Right sided pulmonary empyema. Chest tube placed last night. Reviewed CT scan which brings up the question of erosion of liver process in to pleural space versus aspiration pneumonia. Gram stain of pleural fluid shows gram- positive cocci but still underlying concern for gram-negative rods due to appearance of imaging. --vancomycin for MRSA coverage --Zosyn for coverage of gram-negative rods and anaerobes --check trough of vancomycin this afternoon at 1700. 1st dose of vancomycin was 1 g and will take that into context --planning transfer to [place] per patient request once bed is available # carcinoid, metastatic colon with a history of right lower lobe resection, sclerotherapy of hepatic lesion, multiple ERCPs and stents Microbiology 04/08/18 10:50 Thoracic Fluid - Aspirate +PMNs, GPCs 04/08/18 06:05 Blood Cx (2) : NGTD Medications 3 Generic Name Dose Route Start Last Admin Trade Name Freq PRN Reason Stop Dose Admin Piperacillin/Tazobactam/Dextrose 50 mls @ 100 mls/hr 04/08/18 14:30 04/09/18 05:00 Zosyn 3.375 Gm (Premix) IV 05/08/18 14:29 50 mls Q6 KATTY Vancomycin HCl 1.25 gm/ Sodium 250 mls @ 166.667 mls/hr 04/08/18 0:500 05:50 Chloride IV 05/08/18 17:59 250 mls Q12H KATTY Subjective: Patient remains short of breath, no changes in shortness of breath with chest tube placement. Patient with tense ascites that he reports is stable and lower extremity edema. Cough is also unchanged and continues to be productive for brown colored sputum. Objective: Vital Signs Temp Pulse Resp BP Pulse Ox 37.0 C 123 H 15 128/65 H 94 04/09/18 07:43 04/09/18 07:43 04/09/18 07:43 04/09/18 07:43 04/09/18 07:43 Microbiology 04/08/18 08:30 - Final Sputum, Expectorated Sputum Culture - Final 04/08/18 10:50 Gram Stain - Final Thoracic Fluid - Aspirate 04/08/18 10:58 Gram Stain - Final Thoracic Fluid - Aspirate Body Fluid Culture - Final Laboratory Results 04/09/18 04:50 04/09/18 04:50 04/08/18 04/09/18 04/10/18 05:59 05:59 05:59 Intake Total 4625 Output Total 1900 Balance 2725 ESR 64 MM/HR (0-20) H 04/08/18 05:25 C-Reactive Protein 79.6 mg/L (<10.0) H 04/08/18 05:25 - Physical Exam General Appearance: alert, apparent distress (Mild respiratory distress with mild tachypnea) EENT: pale conjunctiva, dry mucous membranes, No scleral icterus, No thrush Respiratory: other (Significant decreased breath sounds both most entire right hemithorax, breath sounds normal on the left, right-sided chest tube with thin fluid but significant discoloration with a red brown color) Cardiac/Chest: tachycardia (Hyperdynamic precordium) Extremities: pedal edema Abdomen: soft, ascites (Tense), other (Small umbilical hernia that is reducible) , No peritoneal signs Skin: pallor, No rash Neuro/Psych: alert, normal mood/affect, oriented x 3 - Time Spent With Patient Time Spent with Patient: greater than 25 minutes (Care coordinated with critical care and nursing) Time Spent with Patient: Greater than 25 minutes spent on this patients care, greater than 50% of time spent counseling, educating, and coordinating care regarding the above mentioned plan. ICD10 Worksheet Patient Problems: Problems Problem Status Onset Hypokalemia Acute Hypomagnesemia Acute Hypoxia Acute Pneumonia Acute Respiratory distress Acute Sepsis Acute Septic shock Acute
--- NOTE | 2018-04-09 14:04 | PDINTPN ---
Front Office Clerk Progress Note Assessment/Plan: Assessment: Pneumonia. Associated with pleurisy on admission, purulent sputum, and empyema. Empyema. Status post chest tube last night. Gram-positive cocci on Gram stain. Cultures pending. Id following. On Zosyn and vancomycin. Sepsis: Resolved. 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 Now appears to be involving the diaphragm and possibly pleural cavity superiorly. Unclear if this could be infected or not? Ascites, status post biliary stenting. Bilirubin 1.8. Coagulopathy. INR 1.4 today after reversal for chest tube last night. Anemia: Acute blood loss and chronic disease. Hematocrit 25, down from 36 on admission. Following. Metabolic: No issues identified. History of reflux and swallowing dysfunction. To be seen by speech therapy regarding the latter. On pantoprazole. DVT prophylaxis: On enoxaparin. Plan: Continue antibiotics. Await cultures. Continue chest tube to drainage. Pain control as needed. Continue present care and medications. Will keep the patient in the intensive care unit. Transfer to [facility] oncology service has been requested. He will be transferred once a bed is available. Follow laboratory, chest x-ray, clinical status. Will repeat H&H/ PT this afternoon. All the above discussed with the patient and his , nursing, id and the ICU multi disciplinary team. I also spoke with the admitting oncology hospitalist at [facility] who will be accepting the patient in transfer. 45 min of critical care time spent directly with the patient. Multiple visits. Subjective: Chest tube placed last night once INR was down. He he has increased pain secondary to the chest tube. Less air hunger. Some cough with purulent sputum. Objective: Vital Signs Temp Pulse Resp BP Pulse Ox 36.6 C 122 H 22 H 111/58 L 93 04/09/18 12:00 04/09/18 12:00 04/09/18 12:00 04/09/18 12:00 04/09/18 12:00 Microbiology 04/08/18 10:50 Gram Stain - Final Thoracic Fluid - Aspirate 04/08/18 08:30 - Final Sputum, Expectorated Sputum Culture - Final 04/08/18 10:58 Gram Stain - Final Thoracic Fluid - Aspirate Body Fluid Culture - Final Laboratory Results 04/09/18 04:50 04/09/18 04:50 04/08/18 04/09/18 04/10/18 05:59 05:59 05:59 Intake Total 4625 Output Total 1900 600 Balance 2725 -600 PT 17.2 SEC (12.0-15.0) H 04/09/18 01:18 INR 1.39 (0.83-1.16) H 04/09/18 01:18 CXR: Chest tube in place. Improved aeration at the right base. Bibasilar infiltrates/atelectasis persists, left greater than right Laboratory Tests 04/08/18 04/09/18 04/09/18 10:58 04:50 04:50 Calcium 7.3 L Ionized Calcium 1.13 Phosphorus 3.4 Magnesium 2.0 Total Bilirubin 1.8 H AST 31 ALT 27 Alkaline Phosphatase 297 H Albumin 2.0 L Pleural Fluid Source PLEURAL Pleural Color RED H Pleural Appearance CLOUDY H Pleural pH 6.8 Pleural WBC 88353 Pleural RBC 87995 Pleural Neutrophils 93 Pleural Lymphocytes % 5 Pleural Total Protein 3.4 Pleural LDH 9931 Pleural Glucose < 20 L Physical Exam - Physical Exam General Appearance: alert, moderate distress (Intermittent, secondary to pain from the chest tube. Especially with cough) EENT: PERRL/EOMI, other (Nasal cannula in place at 6 L: 93%) Neck: normal inspection (No JVD), No lymphadenopathy (R), No lymphadenopathy (L) Respiratory: decreased breath sounds (Bilaterally, more so at the right base compared to the left), rales (Few rales present bilaterally), rhonchi (Some central rhonchi with cough), No pleural rub Cardiac/Chest: tachycardia (Sinus, approximately 110), other (Chest tube present on the right. No air leak. Draining dark serosanguineous thin fluid.) , No gallop Abdomen: non-tender, soft, distended (Less distended today), No normal bowel sounds (Decreased, present) Male Genitalia: other (No Morrow catheter) Skin: warm/dry, pallor Extremities: pedal edema (1+) Neuro/Psych: no motor/sensory deficits, No cognition abnormalities ICD10 Worksheet Patient Problems: Problems Problem Status Onset Pneumonia Acute Respiratory distress Acute Hypoxia Acute Sepsis Acute Septic shock Acute Hypokalemia Acute Hypomagnesemia Acute
[2018-04-09] MEDS ORDERED: ALBUTEROL 60 PUFFS/8 GM MDI IH PRN (14:28)
[2018-04-09 16:26] VITALS: BP 109/61
[2018-04-10] MEDS ORDERED: VANCOMYCIN 1.5 GM in NS 250 ML IV SCH (06:00)
--- NOTE | 2018-04-10 06:15 | GDS ---
[f rep st] DISCHARGE SUMMARY DISCHARGE DIAGNOSIS: Right-sided empyema. 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 He was subsequently found to have right-sided empyema and had a right-sided chest tube placement done. He was started on empiric antibiotic therapy, including Zosyn and Levaquin. Infectious Disease was also consulted on his case. The patient has a history of carcinoid tumor diagnosed 14 years ago and much of his medical care has been at the [facility] in [place]. After additional discussion, it was felt that the best course of action would be to transfer him to the [facility] in [place] for continuity of his care, anticipating a more prolonged hospitalization and potential for complications. Dr. Guzman made contact with the admitting physicians at the [facility], and arrangements were made for transfer. ANTIBIOTICS AT TIME OF TRANSFER: Zosyn Vancomycin Exam on day of discharge: Vitals: 36.8 109/61 105 R18 98% 6L NC General - patient sitting upright in bed, awake, alert, conversant Heart - regular, no murmurs Lungs - normal effort, diminished sounds at right lung base, chest tube in place Abd - soft, non-tender Extr - no significant pitting edema DISCHARGE INSTRUCTIONS: Patient will be transferred to [facility] for further evaluation and management and for the sake of continuity of his care. /[id number]/MODL MTDD
--- NOTE | 2018-04-13 16:02 | PQFORM ---
PHYSICIAN QUERY FORM Needs Your Response This query form is being sent to you to assure this patient record is coded properly. Please respond to the question below: COMPOSITOR APPRENTICE QUESTION: Dear Dr. Fritz, In reviewing this patient medical record, it was noted that the patient held the diagnosis of 'Sepsis.' In the H&P patient was diagnosed with Sepsis. In Dr. Hurtado 04/08 Consult patient was Diagnosed with Pneumonia and Sepsis. In the Medical Necessity noted dated 04/08 patient was admitted to Inpatient for "eval /tx of sepsis." In the [employer] PN dated 04/09 patient was diagnosed with Pneumonia and sepsis. On the 04/08 Chest X-Ray under the Impression patient held the diagnosis of "Pneumonitis." After study, should the diagnoses of Sepsis be included in the Discharge summary? ___x__ Yes No Unable to determine Other more appropriate diagnosis (Please specify.) Thank you, HUYEN Salazar [facility]/Coding Dept. [phone] INSTRUCTIONS FOR RESPONSE: Answer question by clicking on the "Edit Document" button. Move cursor to area below the stars. When complete, hit "Save." Click on the "Sign" button, then click "Sign" again. Type in your PIN and hit "Enter." Yes, include Sepsis in discharge summary as suspected secondary to pneumonia. Aristides Fritz MD [facility]
== END 2018-04-09 19:00 | disposition short-term general hospital (02) | DRG 872 ==
LOC: EDUNIT# → F2N 08:02
PROVIDERS: ADMIT Family Medicine; ATTEND Family Medicine
PROC: 0W993ZX Drainage of Right Pleural Cavity, Percutaneous Approach, Diagnostic (ICD-10-PCS; principal; 2018-04-08)
PROC: 30283B1 Transfusion of Nonautologous 4-Factor Prothrombin Complex Concentrate into Vein, Percutaneous Approach (ICD-10-PCS; 2018-04-08)
PROC: 30233K1 Transfusion of Nonautologous Frozen Plasma into Peripheral Vein, Percutaneous Approach (ICD-10-PCS; 2018-04-08)
PROC: 0W9930Z Drainage of Right Pleural Cavity with Drainage Device, Percutaneous Approach (ICD-10-PCS; 2018-04-09)
DX: A41.9 Sepsis, unspecified organism (principal); J43.8 Other emphysema; E86.9 Volume depletion, unspecified; E78.5 Hyperlipidemia, unspecified; Z95.5 Presence of coronary angioplasty implant and graft; Z90.2 Acquired absence of lung [part of]; I10 Essential (primary) hypertension; I25.10 Atherosclerotic heart disease of native coronary artery without angina pectoris; K21.9 Gastro-esophageal reflux disease without esophagitis
CPT/HCPCS: 87449-90; 92610-GN; 96365; C9132; G8996-GN-CI; G8997-GN-CI; J0456; J0610; J1170; J1650; J2270; J2543; J3370; J3430; J3475; J3480; J7613; P9016; P9017; Q9967